=== PATIENT | male | born 1940 | race Caucasian/White ===

== ENCOUNTER 2017-10-15 12:27 | Inpatient (IN) | payer MEDICARE, OTHER ==
[2017-10-15] MEDS: IV NORMAL SALINE 1000ML BAG 1,000 ML IV ×4 (12:52→21:01)
[2017-10-15 13:05] LABS: ADD MAN DIFF? NO
[2017-10-15 13:14] LABS: BASO # 0.1 x10^3/uL (0.0-0.2); BASO % 1 % (0-3); EOS # 0.1 x10^3/uL (0.0-0.7); EOS % 2 % (0-3); HEMATOCRIT 22.5 % (39.0-53.0); LYMPH # 1.1 x10^3/uL (1.0-4.8); LYMPH % 15 % (24-48); MEAN CORPUSCULAR HEMOGLOBIN 29 pg (25-35); MEAN CORPUSCULAR HGB CONC 31 g/dL (31-37); MEAN CORPUSCULAR VOLUME 94 fL (79-100); MONO # 0.7 x10^3/uL (0.0-1.1); MONO % 10 % (0-9); NEUT # 5.3 x10^3uL (1.8-7.7); NEUT % 73 % (31-73); PLATELET COUNT 141 x10^3/uL (140-400); RED BLOOD COUNT 2.39 x10^6/uL (4.30-5.70); RED CELL DISTRIBUTION WIDTH 18.6 % (11.5-14.5); WHITE BLOOD COUNT 7.2 x10^3/uL (4.0-11.0)
[2017-10-15 13:17] LABS: HEMOGLOBIN 6.9 g/dL (13.0-17.5)
[2017-10-15 13:21] LABS: ANION GAP 9 (6-14); BLOOD UREA NITROGEN 43 mg/dL (8-26); BUN/CREATININE RATIO 27 (6-20); CALCIUM 7.6 mg/dL (8.5-10.1); CARBON DIOXIDE 27 mmol/L (21-32); CHLORIDE 107 mmol/L (98-107); CREATININE 1.6 mg/dL (0.7-1.3); GFR 42.2; GLUCOSE 165 mg/dL (70-99); POTASSIUM 4.4 mmol/L (3.5-5.1); SODIUM 143 mmol/L (136-145)
[2017-10-15 13:27] LABS: ALBUMIN 2.8 g/dL (3.4-5.0); ALBUMIN/GLOBULIN RATIO 1.1 (1.0-1.7); ALK PHOS 38 U/L (46-116); ALT (SGPT) 27 U/L (16-63); AST (SGOT) 23 U/L (15-37); MAGNESIUM 2.2 mg/dL (1.8-2.4); PARTIAL THROMBOPLASTIN TIME 48 SEC (24-38); TOTAL BILIRUBIN 0.8 mg/dL (0.2-1.0); TOTAL PROTEIN 5.3 g/dL (6.4-8.2)
[2017-10-15 13:28] LABS: PROTHROMBIN TIME PATIENT 65.3 SEC (11.7-14.0)
[2017-10-15 13:29] LABS: LACTIC ACID 2.1 mmol/L (0.4-2.0)
[2017-10-15 13:32] LABS: NT-PRO BNP 18513 pg/mL (0-449)
[2017-10-15 13:34] LABS: INR 8.5 (0.8-1.1)
[2017-10-15 13:36] LABS: TROPONINI 0.068 ng/mL (0.000-0.055)
[2017-10-15] MEDS ORDERED: LIDOCAINE WITH 8.4% SOD BICARB 3 ML DISP.SYRIN. IJ ×2 (13:47→15:44)
[2017-10-15] MEDS: fentaNYL PF VIAL 100 MCG/2 ML VIAL IV ×3 (13:55→19:31)
[2017-10-15] MEDS: LIDOCAINE WITH 8.4% SOD BICARB 3 ML DISP.SYRIN. IJ (14:15)
[2017-10-15] MEDS: PHYTONADIONE (VIT K1) IV 10 MG in IV DEXTROSE 5% 50 ML IV (14:55)
[2017-10-15] MEDS ORDERED: ACETAMINOPHEN 325 MG TABLET. PO (15:15)
[2017-10-15] MEDS ORDERED: ONDANSETRON PF 4 MG/2 ML VIAL. IV ×2 (15:15→16:30)
[2017-10-15] MEDS: IPRATRPIUM/ALBUTEROL 0.5/2.5MG 3 ML NEBU. NEB ×2 (15:24→20:09)
[2017-10-15] MEDS: MORPHINE SULFATE 2 MG/ML DISP.SYRIN. IV ×2 (15:49→21:02)
[2017-10-15 16:28] LABS: IMMEDIATE SPIN CROSSMATCH 1
[2017-10-15] MEDS ORDERED: guaiFENesin DM 200MG/20MG 10 ML SYRUP PO (16:30)
[2017-10-15] MEDS: FUROSEMIDE 20 MG/2 ML VIAL. IVP ×3 (16:30→21:01)
[2017-10-15] MEDS: LIDOCAINE (700MG/PATCH) PATCH. TD (16:30)
[2017-10-15 17:13] LABS: BILIRUBIN,URINE NEGATIVE (NEG); CLARITY,URINE CLEAR; COLOR,URINE YELLOW; GLUCOSE,URINE NEGATIVE (NEG); NITRITE,URINE NEGATIVE (NEG); PH,URINE 5.5; PROTEIN,URINE NEGATIVE (NEG-TRACE)
[2017-10-15 17:25] LABS: BACTERIA,URINE 0 /HPF (0-FEW); HYALINE CASTS, URINE FEW /HPF; RBC,URINE RARE /HPF (0-2); SQUAMOUS EPITHELIAL CELL,UR OCC /LPF; WBC,URINE 0 /HPF (0-4)
[2017-10-15 18:05] LABS: INFLUENZA A PATIENT NEGATIVE (NEGATIVE); INFLUENZA B PATIENT NEGATIVE (NEGATIVE); OBC FLU VALID
[2017-10-15] MEDS ORDERED: SIMVASTATIN 40 MG TABLET. PO (21:00)
[2017-10-15] MEDS: ATORVASTATIN CALCIUM 20 MG TABLET PO (21:02)
[2017-10-15 21:12] LABS: LACTIC ACID 1.4 mmol/L (0.4-2.0)
[2017-10-15 23:51] LABS: INR 2.5 (0.8-1.1); PROTHROMBIN TIME PATIENT 25.7 SEC (11.7-14.0)
[2017-10-15] MEDS: NOREPINEPHRIN PREMIX 250 ML IV (23:53)
[2017-10-15 23:59] LABS: TROPONINI 0.076 ng/mL (0.000-0.055)
[2017-10-16] MEDS: MORPHINE SULFATE 2 MG/ML DISP.SYRIN. IV ×3 (03:03→14:51)
[2017-10-16] MEDS: HYDROcodone/APAP 5/325MG 1 TAB TABLET PO ×2 (03:22→18:34)
[2017-10-16] MEDS: IV NORMAL SALINE 1000ML BAG 1,000 ML IV ×2 (04:13→14:50)
[2017-10-16 05:50] LABS: ADD MAN DIFF? NO
[2017-10-16 06:15] LABS: BASO % 0 % (0-3); EOS # 0.1 x10^3/uL (0.0-0.7); EOS % 1 % (0-3); LYMPH # 1.3 x10^3/uL (1.0-4.8); LYMPH % 10 % (24-48); MEAN CORPUSCULAR HEMOGLOBIN 29 pg (25-35); MEAN CORPUSCULAR HGB CONC 32 g/dL (31-37); MEAN CORPUSCULAR VOLUME 92 fL (79-100); MONO # 1.3 x10^3/uL (0.0-1.1); MONO % 11 % (0-9); NEUT # 9.6 x10^3uL (1.8-7.7); NEUT % 78 % (31-73); PLATELET COUNT 125 x10^3/uL (140-400); RED BLOOD COUNT 1.88 x10^6/uL (4.30-5.70); RED CELL DISTRIBUTION WIDTH 17.9 % (11.5-14.5); WHITE BLOOD COUNT 12.3 x10^3/uL (4.0-11.0)
[2017-10-16 06:22] LABS: HEMATOCRIT 17.3 % (39.0-53.0); HEMOGLOBIN 5.5 g/dL (13.0-17.5)
[2017-10-16 06:47] LABS: ANION GAP 11 (6-14); BLOOD UREA NITROGEN 40 mg/dL (8-26); CALCIUM 7.1 mg/dL (8.5-10.1); CARBON DIOXIDE 24 mmol/L (21-32); CHLORIDE 107 mmol/L (98-107); CREATININE 1.5 mg/dL (0.7-1.3); GFR 45.5; GLUCOSE 116 mg/dL (70-99); POTASSIUM 4.5 mmol/L (3.5-5.1); SODIUM 142 mmol/L (136-145)
[2017-10-16 06:59] LABS: TROPONINI 0.105 ng/mL (0.000-0.055)
[2017-10-16 07:00] LABS: INR 2.1 (0.8-1.1); PROTHROMBIN TIME PATIENT 22.2 SEC (11.7-14.0)
[2017-10-16] MEDS: NOREPINEPHRIN PREMIX 250 ML IV ×3 (07:13→19:27)
[2017-10-16] MEDS: IPRATRPIUM/ALBUTEROL 0.5/2.5MG 3 ML NEBU. NEB ×3 (07:44→15:21)
[2017-10-16] MEDS: POLYETHYLENE GLYCOL 3350 17 GM PACKET. PO (09:00)
[2017-10-16] MEDS: amLODIPine BESYLATE 5 MG TABLET PO (09:00)
[2017-10-16] MEDS: LIDOCAINE (700MG/PATCH) PATCH. TD (09:00)
[2017-10-16] MEDS: FINASTERIDE 5 MG TABLET. PO (09:00)
[2017-10-16] MEDS: FUROSEMIDE 40 MG/4 ML VIAL. IVP (09:00)
[2017-10-16] MEDS: IOHEXOL 300 MG/ML 100ML VIAL. IV (09:30)
[2017-10-16] MEDS ORDERED: CONTRAST GIVEN MC (09:45)
[2017-10-16 10:12] LABS: IMMEDIATE SPIN CROSSMATCH 1
[2017-10-16 13:59] LABS: HEMATOCRIT 21.8 % (39.0-53.0); MEAN CORPUSCULAR HEMOGLOBIN 29 pg (25-35); MEAN CORPUSCULAR HGB CONC 32 g/dL (31-37); MEAN CORPUSCULAR VOLUME 91 fL (79-100); PLATELET COUNT 126 x10^3/uL (140-400); RED BLOOD COUNT 2.39 x10^6/uL (4.30-5.70); RED CELL DISTRIBUTION WIDTH 16.7 % (11.5-14.5); WHITE BLOOD COUNT 11.5 x10^3/uL (4.0-11.0)
[2017-10-16 18:07] LABS: MEAN CORPUSCULAR HGB CONC 32 g/dL (31-37)
[2017-10-16 18:16] LABS: HEMATOCRIT 19.3 % (39.0-53.0); HEMOGLOBIN 6.2 g/dL (13.0-17.5)
[2017-10-16 21:10] LABS: MRSA BY PCR Negative (Negative)
[2017-10-16] MEDS: ATORVASTATIN CALCIUM 20 MG TABLET PO (21:11)
[2017-10-16] MEDS: traMADol 50 MG TABLET PO (21:12)
[2017-10-17 01:16] LABS: HEMATOCRIT 23.8 % (39.0-53.0); HEMOGLOBIN 7.8 g/dL (13.0-17.5); MEAN CORPUSCULAR HEMOGLOBIN 30 pg (25-35); MEAN CORPUSCULAR HGB CONC 33 g/dL (31-37); MEAN CORPUSCULAR VOLUME 91 fL (79-100); PLATELET COUNT 112 x10^3/uL (140-400); RED BLOOD COUNT 2.62 x10^6/uL (4.30-5.70); RED CELL DISTRIBUTION WIDTH 17.5 % (11.5-14.5); WHITE BLOOD COUNT 14.7 x10^3/uL (4.0-11.0)
[2017-10-17] MEDS: IV NORMAL SALINE 1000ML BAG 1,000 ML IV ×3 (02:35→16:45)
[2017-10-17] MEDS: NOREPINEPHRIN PREMIX 250 ML IV ×3 (02:35→18:31)
[2017-10-17 05:48] LABS: ADD MAN DIFF? NO
[2017-10-17 05:51] LABS: BASO # 0.1 x10^3/uL (0.0-0.2); BASO % 1 % (0-3); EOS # 0.1 x10^3/uL (0.0-0.7); EOS % 1 % (0-3); LYMPH # 2.2 x10^3/uL (1.0-4.8); LYMPH % 15 % (24-48); MEAN CORPUSCULAR HEMOGLOBIN 30 pg (25-35); MEAN CORPUSCULAR HGB CONC 33 g/dL (31-37); MEAN CORPUSCULAR VOLUME 90 fL (79-100); MONO # 1.7 x10^3/uL (0.0-1.1); MONO % 12 % (0-9); NEUT # 10.1 x10^3uL (1.8-7.7); NEUT % 71 % (31-73); PLATELET COUNT 109 x10^3/uL (140-400); RED BLOOD COUNT 2.66 x10^6/uL (4.30-5.70); RED CELL DISTRIBUTION WIDTH 17.1 % (11.5-14.5); WHITE BLOOD COUNT 14.2 x10^3/uL (4.0-11.0)
[2017-10-17 06:59] LABS: ANION GAP 5 (6-14); BLOOD UREA NITROGEN 36 mg/dL (8-26); CALCIUM 7.4 mg/dL (8.5-10.1); CARBON DIOXIDE 26 mmol/L (21-32); CHLORIDE 109 mmol/L (98-107); CREATININE 1.4 mg/dL (0.7-1.3); GFR 49.3; GLUCOSE 147 mg/dL (70-99); POTASSIUM 4.1 mmol/L (3.5-5.1); SODIUM 140 mmol/L (136-145)
[2017-10-17 07:23] LABS: CREATINE KINASE 562 U/L (39-308)
[2017-10-17] MEDS: ASPIRIN ENTERIC COATED 81 MG TABLET.DR. PO (08:00)
[2017-10-17] MEDS: FUROSEMIDE 40 MG/4 ML VIAL. IVP (08:21)
[2017-10-17] MEDS: HYDROcodone/APAP 5/325MG 1 TAB TABLET PO ×3 (08:21→22:18)
[2017-10-17] MEDS: fentaNYL PF VIAL 100 MCG/2 ML VIAL IV (08:48)
[2017-10-17] MEDS: MORPHINE SULFATE 2 MG/ML DISP.SYRIN. IV ×3 (08:59→23:55)
[2017-10-17] MEDS: LIDOCAINE (700MG/PATCH) PATCH. TD (09:00)
[2017-10-17] MEDS: amLODIPine BESYLATE 5 MG TABLET PO (09:00)
[2017-10-17] MEDS: POLYETHYLENE GLYCOL 3350 17 GM PACKET. PO (09:00)
[2017-10-17] MEDS: IOHEXOL 300 MG/ML 100ML VIAL. IV (10:00)
[2017-10-17] MEDS: FINASTERIDE 5 MG TABLET. PO (11:58)
[2017-10-17] MEDS: DIGOXIN 125 MCG TABLET. PO (11:59)
[2017-10-17 12:17] LABS: HEMATOCRIT 23.1 % (39.0-53.0); HEMOGLOBIN 7.6 g/dL (13.0-17.5); MEAN CORPUSCULAR HGB CONC 33 g/dL (31-37)
[2017-10-17 12:28] LABS: INR 1.8 (0.8-1.1); PROTHROMBIN TIME PATIENT 19.6 SEC (11.7-14.0)
[2017-10-17] MEDS: ATENOLOL 50 MG TABLET. PO (14:00)
[2017-10-17 20:38] LABS: IMMEDIATE SPIN CROSSMATCH 1 7
[2017-10-17] MEDS: ATORVASTATIN CALCIUM 20 MG TABLET PO (22:18)
[2017-10-17 23:13] LABS: MEAN CORPUSCULAR HGB CONC 33 g/dL (31-37)
[2017-10-17 23:16] LABS: HEMATOCRIT 18.4 % (39.0-53.0); HEMOGLOBIN 6.1 g/dL (13.0-17.5)
[2017-10-18] MEDS: HYDROcodone/APAP 5/325MG 1 TAB TABLET PO ×4 (06:01→23:42)
[2017-10-18] MEDS: MORPHINE SULFATE 2 MG/ML DISP.SYRIN. IV (06:11)
[2017-10-18] MEDS: fentaNYL PF VIAL 100 MCG/2 ML VIAL IV (06:44)
[2017-10-18 06:57] LABS: ADD MAN DIFF? NO
[2017-10-18 06:59] LABS: BASO % 0 % (0-3); EOS # 0.2 x10^3/uL (0.0-0.7); EOS % 2 % (0-3); HEMATOCRIT 22.3 % (39.0-53.0); HEMOGLOBIN 7.4 g/dL (13.0-17.5); LYMPH # 2.3 x10^3/uL (1.0-4.8); LYMPH % 21 % (24-48); MEAN CORPUSCULAR HEMOGLOBIN 31 pg (25-35); MEAN CORPUSCULAR HGB CONC 33 g/dL (31-37); MEAN CORPUSCULAR VOLUME 92 fL (79-100); MONO # 1.4 x10^3/uL (0.0-1.1); MONO % 12 % (0-9); NEUT # 7.1 x10^3uL (1.8-7.7); NEUT % 65 % (31-73); PLATELET COUNT 91 x10^3/uL (140-400); RED BLOOD COUNT 2.43 x10^6/uL (4.30-5.70); RED CELL DISTRIBUTION WIDTH 16.9 % (11.5-14.5); WHITE BLOOD COUNT 10.9 x10^3/uL (4.0-11.0)
[2017-10-18 07:21] LABS: ANION GAP 8 (6-14); BLOOD UREA NITROGEN 31 mg/dL (8-26); CALCIUM 7.5 mg/dL (8.5-10.1); CARBON DIOXIDE 28 mmol/L (21-32); CHLORIDE 109 mmol/L (98-107); CREATININE 1.4 mg/dL (0.7-1.3); GFR 49.3; GLUCOSE 126 mg/dL (70-99); POTASSIUM 4.4 mmol/L (3.5-5.1); SODIUM 145 mmol/L (136-145)
[2017-10-18 07:31] LABS: INR 1.6 (0.8-1.1); PROTHROMBIN TIME PATIENT 18.4 SEC (11.7-14.0)
[2017-10-18] MEDS: LIDOCAINE (700MG/PATCH) PATCH. TD (09:00)
[2017-10-18] MEDS: POLYETHYLENE GLYCOL 3350 17 GM PACKET. PO (09:00)
[2017-10-18] MEDS: amLODIPine BESYLATE 5 MG TABLET PO (09:00)
[2017-10-18] MEDS: ATENOLOL 50 MG TABLET. PO (09:00)
[2017-10-18] MEDS: NOREPINEPHRIN PREMIX 250 ML IV (09:41)
[2017-10-18] MEDS: DIGOXIN 125 MCG TABLET. PO (11:38)
[2017-10-18] MEDS: ASPIRIN ENTERIC COATED 81 MG TABLET.DR. PO (11:38)
[2017-10-18] MEDS: FINASTERIDE 5 MG TABLET. PO (11:39)
[2017-10-18] MEDS: FUROSEMIDE 40 MG/4 ML VIAL. IVP (11:39)
[2017-10-18] MEDS: IV NORMAL SALINE 1000ML BAG 1,000 ML IV ×2 (11:41→20:44)
[2017-10-18 11:53] LABS: HEMATOCRIT 21.2 % (39.0-53.0); MEAN CORPUSCULAR HGB CONC 33 g/dL (31-37)
[2017-10-18] MEDS: ATORVASTATIN CALCIUM 20 MG TABLET PO (23:41)
[2017-10-19] MEDS: NOREPINEPHRIN PREMIX 250 ML IV ×2 (03:00→22:00)
[2017-10-19] MEDS: HYDROcodone/APAP 5/325MG 1 TAB TABLET PO ×3 (03:20→17:31)
[2017-10-19] MEDS: fentaNYL PF VIAL 100 MCG/2 ML VIAL IV ×3 (03:20→17:33)
[2017-10-19 05:52] LABS: HEMOGLOBIN 7.2 g/dL (13.0-17.5); MEAN CORPUSCULAR HGB CONC 34 g/dL (31-37)
[2017-10-19 06:03] LABS: ANION GAP 6 (6-14); BLOOD UREA NITROGEN 27 mg/dL (8-26); CALCIUM 7.5 mg/dL (8.5-10.1); CARBON DIOXIDE 30 mmol/L (21-32); CHLORIDE 107 mmol/L (98-107); CREATININE 1.1 mg/dL (0.7-1.3); GFR 65.1; GLUCOSE 119 mg/dL (70-99); POTASSIUM 3.9 mmol/L (3.5-5.1); SODIUM 143 mmol/L (136-145)
[2017-10-19] MEDS ORDERED: CONTRAST GIVEN MC ×2 (08:30→23:00)
[2017-10-19 08:41] LABS: CREATINE KINASE 238 U/L (39-308)
[2017-10-19] MEDS: IOHEXOL 300 MG/ML 100ML VIAL. IV ×2 (08:45→23:00)
[2017-10-19] MEDS ORDERED: FUROSEMIDE 40 MG TABLET. PO (09:00)
[2017-10-19] MEDS: POLYETHYLENE GLYCOL 3350 17 GM PACKET. PO (09:00)
[2017-10-19] MEDS: amLODIPine BESYLATE 5 MG TABLET PO (09:00)
[2017-10-19] MEDS: ATENOLOL 50 MG TABLET. PO (09:00)
[2017-10-19] MEDS: LIDOCAINE (700MG/PATCH) PATCH. TD (09:00)
[2017-10-19] MEDS: FUROSEMIDE 40 MG TABLET. PO (09:44)
[2017-10-19] MEDS: IV NORMAL SALINE 1000ML BAG 1,000 ML IV (09:44)
[2017-10-19] MEDS: DIGOXIN 125 MCG TABLET. PO (09:45)
[2017-10-19] MEDS: FINASTERIDE 5 MG TABLET. PO (09:45)
[2017-10-19 11:25] LABS: INR 1.5 (0.8-1.1); PROTHROMBIN TIME PATIENT 17.1 SEC (11.7-14.0)
[2017-10-19 14:55] LABS: MEAN CORPUSCULAR HGB CONC 33 g/dL (31-37)
[2017-10-19 15:00] LABS: HEMATOCRIT 20.9 % (39.0-53.0); HEMOGLOBIN 6.9 g/dL (13.0-17.5)
[2017-10-19 18:19] LABS: IMMEDIATE SPIN CROSSMATCH 1 1
[2017-10-19] MEDS: ATORVASTATIN CALCIUM 20 MG TABLET PO (21:12)
[2017-10-19 23:51] LABS: HEMATOCRIT 23.3 % (39.0-53.0); HEMOGLOBIN 7.6 g/dL (13.0-17.5); MEAN CORPUSCULAR HGB CONC 33 g/dL (31-37)
[2017-10-20 07:38] LABS: ADD MAN DIFF? NO
[2017-10-20 07:45] LABS: BASO # 0.1 x10^3/uL (0.0-0.2); BASO % 1 % (0-3); EOS # 0.2 x10^3/uL (0.0-0.7); EOS % 2 % (0-3); HEMATOCRIT 23.3 % (39.0-53.0); HEMOGLOBIN 7.6 g/dL (13.0-17.5); LYMPH # 1.3 x10^3/uL (1.0-4.8); LYMPH % 17 % (24-48); MEAN CORPUSCULAR HEMOGLOBIN 30 pg (25-35); MEAN CORPUSCULAR HGB CONC 33 g/dL (31-37); MEAN CORPUSCULAR VOLUME 93 fL (79-100); MONO # 0.9 x10^3/uL (0.0-1.1); MONO % 11 % (0-9); NEUT # 5.4 x10^3uL (1.8-7.7); NEUT % 69 % (31-73); PLATELET COUNT 73 x10^3/uL (140-400); RED BLOOD COUNT 2.52 x10^6/uL (4.30-5.70); RED CELL DISTRIBUTION WIDTH 17.3 % (11.5-14.5); WHITE BLOOD COUNT 7.9 x10^3/uL (4.0-11.0)
[2017-10-20] MEDS ORDERED: SODIUM CHLORIDE 0.65% NASAL SPRAY 45ML BOTTLE. NS (07:45)
[2017-10-20] MEDS: amLODIPine BESYLATE 5 MG TABLET PO (08:21)
[2017-10-20] MEDS: LIDOCAINE (700MG/PATCH) PATCH. TD (08:22)
[2017-10-20] MEDS: ATENOLOL 50 MG TABLET. PO (08:22)
[2017-10-20] MEDS: FINASTERIDE 5 MG TABLET. PO (08:28)
[2017-10-20] MEDS: IV NORMAL SALINE 1000ML BAG 1,000 ML IV ×2 (08:28→15:45)
[2017-10-20] MEDS: POLYETHYLENE GLYCOL 3350 17 GM PACKET. PO (08:28)
[2017-10-20] MEDS: FUROSEMIDE 40 MG TABLET. PO (08:28)
[2017-10-20] MEDS: HYDROcodone/APAP 5/325MG 1 TAB TABLET PO (08:29)
[2017-10-20] MEDS: DIGOXIN 125 MCG TABLET. PO (08:29)
[2017-10-20] MEDS: fentaNYL PF VIAL 100 MCG/2 ML VIAL IV (11:41)
[2017-10-20 15:11] LABS: HEMATOCRIT 22.7 % (39.0-53.0); HEMOGLOBIN 7.4 g/dL (13.0-17.5); MEAN CORPUSCULAR HGB CONC 33 g/dL (31-37)
[2017-10-20] MEDS: NOREPINEPHRIN PREMIX 250 ML IV (17:47)
[2017-10-20] MEDS: ATORVASTATIN CALCIUM 20 MG TABLET PO (21:13)
[2017-10-20 22:06] LABS: HEMATOCRIT 22.1 % (39.0-53.0); HEMOGLOBIN 7.3 g/dL (13.0-17.5); MEAN CORPUSCULAR HGB CONC 33 g/dL (31-37)
[2017-10-21] MEDS: fentaNYL PF VIAL 100 MCG/2 ML VIAL IV (00:51)
[2017-10-21] MEDS: HYDROcodone/APAP 5/325MG 1 TAB TABLET PO (00:51)
[2017-10-21] MEDS: IV NORMAL SALINE 1000ML BAG 1,000 ML IV ×2 (05:05→15:00)
[2017-10-21 06:49] LABS: ADD MAN DIFF? NO
[2017-10-21 07:15] LABS: BASO % 1 % (0-3); EOS # 0.1 x10^3/uL (0.0-0.7); EOS % 2 % (0-3); HEMATOCRIT 21.7 % (39.0-53.0); HEMOGLOBIN 7.1 g/dL (13.0-17.5); LYMPH # 0.9 x10^3/uL (1.0-4.8); LYMPH % 17 % (24-48); MEAN CORPUSCULAR HEMOGLOBIN 30 pg (25-35); MEAN CORPUSCULAR HGB CONC 33 g/dL (31-37); MEAN CORPUSCULAR VOLUME 91 fL (79-100); MONO # 0.6 x10^3/uL (0.0-1.1); MONO % 11 % (0-9); NEUT # 3.9 x10^3uL (1.8-7.7); NEUT % 70 % (31-73); PLATELET COUNT 66 x10^3/uL (140-400); RED BLOOD COUNT 2.39 x10^6/uL (4.30-5.70); RED CELL DISTRIBUTION WIDTH 17.5 % (11.5-14.5); WHITE BLOOD COUNT 5.6 x10^3/uL (4.0-11.0)
[2017-10-21 07:28] LABS: ANION GAP 7 (6-14); BLOOD UREA NITROGEN 23 mg/dL (8-26); CALCIUM 7.7 mg/dL (8.5-10.1); CARBON DIOXIDE 30 mmol/L (21-32); CHLORIDE 107 mmol/L (98-107); CREATININE 0.9 mg/dL (0.7-1.3); GLUCOSE 103 mg/dL (70-99); POTASSIUM 3.8 mmol/L (3.5-5.1); SODIUM 144 mmol/L (136-145)
[2017-10-21] MEDS: LIDOCAINE (700MG/PATCH) PATCH. TD (07:40)
[2017-10-21] MEDS: ATENOLOL 50 MG TABLET. PO (08:59)
[2017-10-21] MEDS: POLYETHYLENE GLYCOL 3350 17 GM PACKET. PO (08:59)
[2017-10-21] MEDS: DIGOXIN 125 MCG TABLET. PO (08:59)
[2017-10-21] MEDS: FUROSEMIDE 40 MG TABLET. PO (08:59)
[2017-10-21] MEDS: amLODIPine BESYLATE 5 MG TABLET PO (08:59)
[2017-10-21] MEDS: FINASTERIDE 5 MG TABLET. PO (08:59)
[2017-10-21] MEDS: FUROSEMIDE 40 MG/4 ML VIAL. IVP ×2 (13:26→14:00)
[2017-10-21] MEDS: ATORVASTATIN CALCIUM 20 MG TABLET PO (20:49)
[2017-10-22 04:59] LABS: ADD MAN DIFF? NO
[2017-10-22 05:24] LABS: INR 1.4 (0.8-1.1)
[2017-10-22 05:29] LABS: BASO % 1 % (0-3); EOS % 1 % (0-3); HEMATOCRIT 23.9 % (39.0-53.0); HEMOGLOBIN 7.9 g/dL (13.0-17.5); LYMPH # 0.9 x10^3/uL (1.0-4.8); LYMPH % 13 % (24-48); MEAN CORPUSCULAR HEMOGLOBIN 31 pg (25-35); MEAN CORPUSCULAR HGB CONC 33 g/dL (31-37); MEAN CORPUSCULAR VOLUME 93 fL (79-100); MONO # 0.7 x10^3/uL (0.0-1.1); MONO % 10 % (0-9); NEUT % 76 % (31-73); PLATELET COUNT 82 x10^3/uL (140-400); RED BLOOD COUNT 2.56 x10^6/uL (4.30-5.70); RED CELL DISTRIBUTION WIDTH 17.8 % (11.5-14.5); WHITE BLOOD COUNT 6.6 x10^3/uL (4.0-11.0)
[2017-10-22 05:44] LABS: ANION GAP 9 (6-14); BLOOD UREA NITROGEN 25 mg/dL (8-26); CARBON DIOXIDE 30 mmol/L (21-32); CHLORIDE 105 mmol/L (98-107); GFR 72.6; GLUCOSE 109 mg/dL (70-99); POTASSIUM 4.1 mmol/L (3.5-5.1); SODIUM 144 mmol/L (136-145)
[2017-10-22] MEDS: FUROSEMIDE 40 MG TABLET. PO (09:00)
[2017-10-22] MEDS: DIGOXIN 125 MCG TABLET. PO (09:00)
[2017-10-22] MEDS: FINASTERIDE 5 MG TABLET. PO (09:00)
[2017-10-22] MEDS: LIDOCAINE (700MG/PATCH) PATCH. TD (09:00)
[2017-10-22] MEDS: ATENOLOL 50 MG TABLET. PO (09:00)
[2017-10-22] MEDS: POLYETHYLENE GLYCOL 3350 17 GM PACKET. PO (09:00)
[2017-10-22] MEDS: amLODIPine BESYLATE 5 MG TABLET PO (09:00)
[2017-10-22] MEDS: FUROSEMIDE 40 MG/4 ML VIAL. IVP (12:41)
[2017-10-22] MEDS: ATORVASTATIN CALCIUM 20 MG TABLET PO (20:00)
[2017-10-23] MEDS: FINASTERIDE 5 MG TABLET. PO (09:00)
[2017-10-23] MEDS: ATENOLOL 50 MG TABLET. PO (09:00)
[2017-10-23] MEDS: FUROSEMIDE 40 MG TABLET. PO (09:00)
[2017-10-23] MEDS: DIGOXIN 125 MCG TABLET. PO (09:00)
[2017-10-23] MEDS: amLODIPine BESYLATE 5 MG TABLET PO (09:00)
[2017-10-23] MEDS: POLYETHYLENE GLYCOL 3350 17 GM PACKET. PO (09:00)
[2017-10-23] MEDS: LIDOCAINE (700MG/PATCH) PATCH. TD (09:00)
[2017-10-23] MEDS: DIGOXIN IV 500 MCG/2 ML AMPUL. IV (13:53)
[2017-10-23] MEDS: METOPROLOL TARTRATE 5 MG/5 ML VIAL. IVP ×2 (13:53→18:42)
[2017-10-23] MEDS: FUROSEMIDE 40 MG/4 ML VIAL. IVP (18:44)
[2017-10-23] MEDS: ATORVASTATIN CALCIUM 20 MG TABLET PO (21:00)
[2017-10-23 21:16] LABS: POC GLUCOSE 131 mg/dL (70-99)
[2017-10-23] MEDS: MORPHINE SULFATE 2 MG/ML DISP.SYRIN. IV (22:41)
[2017-10-24] MEDS: METOPROLOL TARTRATE 5 MG/5 ML VIAL. IVP ×4 (01:05→19:33)
[2017-10-24 07:50] LABS: INR 1.4 (0.8-1.1); PROTHROMBIN TIME PATIENT 16.5 SEC (11.7-14.0)
[2017-10-24] MEDS: FUROSEMIDE 40 MG/4 ML VIAL. IVP (08:45)
[2017-10-24] MEDS: DIGOXIN IV 500 MCG/2 ML AMPUL. IV (08:46)
[2017-10-24] MEDS: LIDOCAINE (700MG/PATCH) PATCH. TD (08:47)
[2017-10-24] MEDS: POLYETHYLENE GLYCOL 3350 17 GM PACKET. PO (09:00)
[2017-10-24] MEDS: amLODIPine BESYLATE 5 MG TABLET PO (09:00)
[2017-10-24] MEDS: FINASTERIDE 5 MG TABLET. PO (09:00)
[2017-10-24] MEDS: MORPHINE SULFATE 2 MG/ML DISP.SYRIN. IV ×2 (14:20→16:34)
[2017-10-24] MEDS: ATORVASTATIN CALCIUM 20 MG TABLET PO (21:00)
[2017-10-25] MEDS: METOPROLOL TARTRATE 5 MG/5 ML VIAL. IVP ×4 (00:53→18:00)
[2017-10-25] MEDS: MORPHINE SULFATE 2 MG/ML DISP.SYRIN. IV (05:52)
[2017-10-25 07:00] LABS: ADD MAN DIFF? NO
[2017-10-25 07:06] LABS: BASO % 0 % (0-3); EOS % 0 % (0-3); HEMATOCRIT 28.8 % (39.0-53.0); LYMPH # 1.2 x10^3/uL (1.0-4.8); LYMPH % 11 % (24-48); MEAN CORPUSCULAR HEMOGLOBIN 31 pg (25-35); MEAN CORPUSCULAR HGB CONC 31 g/dL (31-37); MEAN CORPUSCULAR VOLUME 99 fL (79-100); MONO # 1.2 x10^3/uL (0.0-1.1); MONO % 12 % (0-9); NEUT # 8.1 x10^3uL (1.8-7.7); NEUT % 77 % (31-73); PLATELET COUNT 180 x10^3/uL (140-400); RED BLOOD COUNT 2.91 x10^6/uL (4.30-5.70); RED CELL DISTRIBUTION WIDTH 20.5 % (11.5-14.5); WHITE BLOOD COUNT 10.6 x10^3/uL (4.0-11.0)
[2017-10-25 07:28] LABS: ANION GAP 11 (6-14); BLOOD UREA NITROGEN 48 mg/dL (8-26); CARBON DIOXIDE 32 mmol/L (21-32); CHLORIDE 104 mmol/L (98-107); CREATININE 1.3 mg/dL (0.7-1.3); GFR 53.7; GLUCOSE 109 mg/dL (70-99); POTASSIUM 4.4 mmol/L (3.5-5.1); SODIUM 147 mmol/L (136-145)
[2017-10-25] MEDS: LIDOCAINE (700MG/PATCH) PATCH. TD ×2 (09:00→10:01)
[2017-10-25] MEDS: POLYETHYLENE GLYCOL 3350 17 GM PACKET. PO (09:00)
[2017-10-25] MEDS: FINASTERIDE 5 MG TABLET. PO (09:00)
[2017-10-25] MEDS: amLODIPine BESYLATE 5 MG TABLET PO (09:00)
[2017-10-25] MEDS: FUROSEMIDE 40 MG/4 ML VIAL. IVP (10:02)
[2017-10-25] MEDS: DIGOXIN IV 500 MCG/2 ML AMPUL. IV (10:03)
[2017-10-25] MEDS: ATORVASTATIN CALCIUM 20 MG TABLET PO (20:06)
[2017-10-26] MEDS: MORPHINE SULFATE 2 MG/ML DISP.SYRIN. IV ×2 (02:19→04:40)
[2017-10-26] MEDS: METOPROLOL TARTRATE 5 MG/5 ML VIAL. IVP ×2 (05:22)
== END 2017-10-26 05:50 | disposition expired | DRG 70 ==
LOC: 6 SOUTH 10-21 20:45 → ER 12:27 → 1 WEST ICU 13:51
PROC: 30233L1 Transfusion of Nonautologous Fresh Plasma into Peripheral Vein, Percutaneous Approach (ICD-10-PCS; principal; 2017-10-18)
PROC: 30233N1 Transfusion of Nonautologous Red Blood Cells into Peripheral Vein, Percutaneous Approach (ICD-10-PCS; 2017-10-18)
PROC: 30233K1 Transfusion of Nonautologous Frozen Plasma into Peripheral Vein, Percutaneous Approach (ICD-10-PCS; 2017-10-18)
DX: G93.41 Metabolic encephalopathy (principal); I50.23 Acute on chronic systolic (congestive) heart failure; D68.9 Coagulation defect, unspecified; D69.6 Thrombocytopenia, unspecified; E11.22 Type 2 diabetes mellitus with diabetic chronic kidney disease; I95.9 Hypotension, unspecified; D62 Acute posthemorrhagic anemia; E87.2 Acidosis; I13.0 Hypertensive heart and chronic kidney disease with heart failure and stage 1 through stage 4 chronic kidney disease, or unspecified chronic kidney disease; I24.8 Other forms of acute ischemic heart disease; R18.8 Other ascites; R65.10 Systemic inflammatory response syndrome (SIRS) of non-infectious origin without acute organ dysfunction; I42.9 Cardiomyopathy, unspecified; S80.10XA Contusion of unspecified lower leg, initial encounter; W18.30XA Fall on same level, unspecified, initial encounter; D63.8 Anemia in other chronic diseases classified elsewhere; M19.90 Unspecified osteoarthritis, unspecified site; E78.00 Pure hypercholesterolemia, unspecified; E78.5 Hyperlipidemia, unspecified; F17.210 Nicotine dependence, cigarettes, uncomplicated; I25.10 Atherosclerotic heart disease of native coronary artery without angina pectoris; I48.2 Chronic atrial fibrillation; I70.0 Atherosclerosis of aorta; I72.4 Aneurysm of artery of lower extremity; J44.9 Chronic obstructive pulmonary disease, unspecified; K02.9 Dental caries, unspecified; K05.6 Periodontal disease, unspecified; K74.60 Unspecified cirrhosis of liver; N18.3 Chronic kidney disease, stage 3 (moderate); N40.0 Benign prostatic hyperplasia without lower urinary tract symptoms; R13.10 Dysphagia, unspecified; R29.6 Repeated falls; S70.02XA Contusion of left hip, initial encounter; Z66 Do not resuscitate; Z79.01 Long term (current) use of anticoagulants; Z95.1 Presence of aortocoronary bypass graft; Z91.81 History of falling; Z86.73 Personal history of transient ischemic attack (TIA), and cerebral infarction without residual deficits; Y93.89 Activity, other specified; Y92.89 Other specified places as the place of occurrence of the external cause; Y99.8 Other external cause status; Z82.49 Family history of ischemic heart disease and other diseases of the circulatory system
CPT/HCPCS: 36415; 36556; 70450; 70486; 71045; 71101; 71275; 72125; 72192; 73502; 74175; 75635; 76937; 80048; 80053; 81001; 82550; 82962; 83605; 83735; 83880; 84484; 85014; 85018; 85025; 85027; 85610; 85730; 86850; 86900; 86901; 86920; 86927; 87040; 87641; 87804; 87804-59; 92526-GN; 92610-GN; 93005; 94640; 96365; 96375; 96376; 97162-GP; 97166-GO; 97530-GP; 99291; 99291-25; A4215; C1892; J0690; J1160; J1940; J2060; J2270; J3010; J3430; J3490; J7030; J7620; P9016; P9017; Q9967